=== PATIENT | female | born 2000 | race American Indian/Alaskan Native ===

== ENCOUNTER 2021-11-07 20:50 | Emergency (ER) | payer SELFPAY ==
--- NOTE | 2021-11-08 00:55 | Emergency Department Report ---
ED General Adult HPI - General Chief complaint: Skin Rash Stated complaint: LESIONS ON HANDS Source: patient Mode of arrival: Ambulatory Limitations: No Limitations - History of Present Illness Initial comments: Patient is a 21-year-old -[place] female with history of chronic eczema who presents to the ED with complaint of acute onset persistent mild erythematous maculopapular painful itchy rashes on dorsal bilateral hands for the last 2 days. Patient states that the itching and the pain have worsened with worsening redness around the rashes. Patient denies fever, chills, nausea and vomiting, numbness and tingling or weakness of upper extremities bilaterally, exposure to any allergen or insect bite. MD Complaint: Dorsal bilateral hand erythematous maculopapular rashes -: Gradual, days(s) (2) Location: upper extremity (Bilateral dorsal hands) Radiation: non-radiation Severity scale (0 -10): 4 Quality: burning, aching, dull Consistency: constant Improves with: none Worsens with: none Associated Symptoms: denies other symptoms, rash (Mild erythematous maculopapular itchy rash on dorsal bilateral hands). denies: confusion, chest pain, cough, diaphoresis, fever/chills, headaches, loss of appetite, malaise, nausea/vomiting, seizure, shortness of breath, syncope, weakness Treatments Prior to Arrival: none - Related Data Previous Rx's Medication Instructions Recorded Last Taken Type Doxycycline Hyclate 100 mg PO Q12H #20 cap 11/08/21 Unknown Rx Triamcinolone Acetonide 1 applic TP BID #1 tube 11/08/21 Unknown Rx [Triamcinolone Acetonide Oint 0.5%] Allergies Allergy/AdvReac Type Severity Reaction Status Date / Time No Known Allergies Allergy Verified 11/07/21 22:00 ED Review of Systems ROS: Stated complaint: LESIONS ON HANDS Other details as noted in HPI Constitutional: denies: chills, fever Eyes: denies: eye pain, eye discharge, vision change ENT: denies: ear pain, throat pain Respiratory: denies: cough, shortness of breath, wheezing Cardiovascular: denies: chest pain, palpitations Endocrine: no symptoms reported Gastrointestinal: denies: abdominal pain, nausea, diarrhea Genitourinary: denies: urgency, dysuria, discharge Musculoskeletal: denies: back pain, joint swelling, arthralgia Skin: rash (Bilateral dorsal hand mild erythematous maculopapular itchy rashes), change in color, pruritus. denies: lesions Neurological: denies: headache, weakness, paresthesias Psychiatric: denies: anxiety, depression Hematological/Lymphatic: denies: easy bleeding, easy bruising ED Past Medical Hx - Medications Home Medications: Home Medications Medication Instructions Recorded Confirmed Last Taken Type Doxycycline Hyclate 100 mg PO Q12H #20 cap 11/08/21 Unknown Rx Triamcinolone Acetonide 1 applic TP BID #1 tube 11/08/21 Unknown Rx [Triamcinolone Acetonide Oint 0.5%] ED Physical Exam - General Limitations: No Limitations General appearance: alert, in no apparent distress - Head Head exam: Present: atraumatic, normocephalic, normal inspection - Eye Eye exam: Present: normal appearance, PERRL, EOMI Pupils: Present: normal accommodation - ENT ENT exam: Present: normal exam, normal orophraynx, mucous membranes moist, TM's normal bilaterally, normal external ear exam - Neck Neck exam: Present: normal inspection, full ROM. Absent: tenderness, meningismus - Respiratory Respiratory exam: Present: normal lung sounds bilaterally. Absent: respiratory distress, wheezes, rales, rhonchi, stridor, chest wall tenderness, accessory muscle use, decreased breath sounds, prolonged expiratory - Cardiovascular Cardiovascular Exam: Present: regular rate, normal rhythm, normal heart sounds. Absent: systolic murmur, diastolic murmur, rubs, gallop - GI/Abdominal GI/Abdominal exam: Present: soft, normal bowel sounds. Absent: tenderness, guarding, rebound, hyperactive bowel sounds, hypoactive bowel sounds, organomegaly, mass - Extremities Exam Extremities exam: Present: normal inspection, full ROM, normal capillary refill. Absent: tenderness, pedal edema, joint swelling, calf tenderness - Back Exam Back exam: Present: normal inspection, full ROM. Absent: tenderness, CVA tenderness (R), CVA tenderness (L), muscle spasm, paraspinal tenderness, vertebral tenderness - Neurological Exam Neurological exam: Present: alert, oriented X3, CN II-XII intact, normal gait, reflexes normal - Psychiatric Psychiatric exam: Present: normal affect, normal mood - Skin Skin exam: Present: warm, dry, intact, rash (Mild erythematous maculopapular rashes on bilateral dorsal hands), erythema. Absent: normal color ED Course Vital Signs 11/07/21 21:57 Temperature 98.2 F Pulse Rate 86 Respiratory 18 Rate Blood Pressure 134/87 O2 Sat by Pulse 99 Oximetry ED Medical Decision Making - Medical Decision Making This is a 21-year-old -[place] female with history of chronic eczema who presents to the ED with complaint of acute onset persistent mild erythematous maculopapular painful itchy rashes on dorsal bilateral hands for the last 2 days. Patient states that the itching and the pain have worsened with worsening redness around the rashes. In the ED, patient is alert and oriented x3 and is not in any distress. Patient is hemodynamically stable. Patient was discharged home on medications and advised to follow-up with her primary care physician in 7 to 10 days for reevaluation or return to the ED immediately if symptoms get worse. - Differential Diagnosis Cellulitis; folliculitis; allergic reaction; irritant dermatitis Critical care attestation.: If time is entered above; I have spent that time in minutes in the direct care of this critically ill patient, excluding procedure time. ED Disposition Clinical Impression: Cellulitis of hand excluding fingers Irritant contact dermatitis Qualifiers: Contact dermatitis trigger: other trigger Qualified Code(s): L24.89 - Irritant contact dermatitis due to other agents; L24.8 - Irritant contact dermatitis due to other agents Disposition: 01 HOME / SELF CARE / HOMELESS Is pt being admited?: No Does the pt Need Aspirin: No Condition: Stable Instructions: Contact Dermatitis, [id number], Cellulitis, Adult, [id number] Additional Instructions: Take medication with food, drink plenty of fluids, follow-up with your primary care physician in 7 to 10 days for reevaluation. Return to the ED immediately if symptoms get worse. Prescriptions: Doxycycline Hyclate 100 mg PO Q12H #20 cap Triamcinolone Acetonide [Triamcinolone Acetonide Oint 0.5%] 1 applic TP BID #1 tube Referrals: [facility] [Provider Group] - 7-10 days Forms: Work/School Release Form(ED) Time of Disposition: 00:58 Print Language: [place]
[2021-11-08 02:20] VITALS: BP 139/88
== END 2021-11-08 02:20 | disposition home or self-care (01) ==
LOC: EDBD → ED 20:50
DX: L03.114 Cellulitis of left upper limb (principal); L03.113 Cellulitis of right upper limb; L24.89 Irritant contact dermatitis due to other agents
CPT/HCPCS: 99282